=== PATIENT | male | born 1995 | race Caucasian/White ===

== ENCOUNTER 2022-09-21 12:48 | Inpatient (IN) ==
[2022-09-21] MEDS ORDERED: SODIUM CHLORIDE 0.9% 500 ML IV STA (13:13)
[2022-09-21] MEDS: METOPROLOL TARTRATE 1 MG/ML VIAL IV PRN ×4 (13:22→14:20)
--- NOTE | 2022-09-21 13:52 | XRay Report ---
XR chest 1V portable CLINICAL HISTORY: Dysrhythmia TECHNIQUE: Single frontal radiograph of the chest was obtained. Comparison: None available at the time of this dictation. FINDINGS: Exam is limited by underpenetration. The cardiomediastinal silhouette is normal. Prominence and cepha lization of the vasculature is seen. No evidence of pleural effusion or pneumothorax. IMPRESSION: Mild pulmonary edema. ACT 112: Negative or not required by law. Electronically signed by: Frederic Avelar M.D. 09/21/2022 1:50 PM
--- NOTE | 2022-09-21 14:47 | Emergency Department Note ---
History of Present Illness General Chief complaint: Cardiac Assessment Stated complaint: new onset a-fib Time Seen by Provider: 09/21/22 13:01 History of Present Illness 26-year-old male presents to the ED with a chief complaint of atrial fibrillation. The patient states that he was scheduled to have an EGD today. He went to the appointment and was found to have a high heart rate. An EKG was performed and they were concerned about rapid A. fib. He did not get the EGD. He was sent to the ED for evaluation. He states that he feels fine. He does not feel any thing unusual. He does report some shortness of breath if he exerts himself a far distance but typical exertion for him does not seem to be difficult or strenuous. He denies any chest pains or shortness of breath. No palpitations. No additional complaints. He states that he has only had 1 previous EKG in his lifetime about 4 years ago. He was supposed to have the EGD today for a planned gastric bypass surgery. Home Medications Medication Instructions Recorded Confirmed Type bupropion HCl 150 mg 24 hr tablet, 150 mg PO BID 09/18/22 09/21/22 History extended release (Wellbutrin XL) ergocalciferol (vitamin D2) 1,250 1,250 mcg PO Q7D 09/18/22 09/21/22 History mcg (50,000 unit) capsule (Vitamin D2) furosemide 40 mg tablet 40 mg PO HS 09/18/22 09/21/22 History multivitamin 1 tab PO HS 09/18/22 09/21/22 History vitamin A 10,000 unit capsule 10,000 unit PO HS 09/18/22 09/21/22 History Allergies Allergy/AdvReac Type Severity Reaction Status Date / Time No Known Drug Allergies Allergy Verified 09/21/22 11:18 Past Med/Surg History Medical History Depression wellbutrin-also being taken as a craving miladys Hx of edema left leg Hx of migraines once every 4 months Osteoarthritis left knee and lower back Sleep apnea cpap Vitamin A deficiency Vitamin D deficiency Surgical History History of surgical removal of lesion brendon removed from neck Social History (Reviewed 09/21/22 @ 14:39 by SHLOMO Barth Smoking Status: Never smoker Second Hand Exposure: Yes (when staying w/friend-he smokes); Hx Alcohol Use: Yes Hx Substance Use: No Preferred Language: Turkmen Communication Ability: Effective Dado Operator Required: No Beliefs That Will Affect Care: None Current Living Situation: Family Current Living Situation Comment: lives w/aunt and uncle Feels Safe at Home: Yes Assistive Devices: CPAP and Glasses Review of Systems A total of 10 systems reviewed and were otherwise negative Physical Exam Vital Signs Vital Signs - 24 hr 09/21/22 12:54 09/21/22 13:22 09/21/22 13:50 Temperature 36.6 C Temperature Source Temporal Artery Scan Pulse Rate 135 H 156 H 134 H Pulse Rate [Apical] Pulse Rhythm Irregular Respiratory Rate 20 Respiratory Effort / Characteristics Non-Labored Respiratory Depth Normal Blood Pressure 158/97 H 134/98 132/103 H Blood Pressure [Left Arm] Blood Pressure Mean 117 Blood Pressure Mean [Left Arm] Blood Pressure Position Sitting Pulse Oximetry 100 Oxygen Delivery Method Room Air Sepsis Recent Fever Within 48 Hours No Sepsis New/Unexplained Change in Mental Status N/A Sepsis Action Taken by Nursing No Action Required 09/21/22 14:09 09/21/22 13:13 09/21/22 13:09 Temperature Temperature Source Pulse Rate 143 H Pulse Rate [Apical] 128 H Pulse Rhythm Respiratory Rate 20 Respiratory Effort / Characteristics Respiratory Depth Blood Pressure 128/96 Blood Pressure [Left Arm] 134/98 Blood Pressure Mean Blood Pressure Mean [Left Arm] 110 Blood Pressure Position Pulse Oximetry 98 100 Oxygen Delivery Method Room Air Room Air Sepsis Recent Fever Within 48 Hours Sepsis New/Unexplained Change in Mental Status Sepsis Action Taken by Nursing CONSTITUTIONAL/VITAL SIGNS: Reviewed / noted above. GENERAL: Non-toxic in appearance. Morbidly obese. INTEGUMENTARY: Warm, dry, and [place]. HEAD: Normocephalic. EYES: without scleral icterus or trauma. ENT/OROPHARYNX: clear and moist. LYMPHADENOPATHY/NECK: Is supple without lymphadenopathy or meningismus. RESPIRATORY: Clear to auscultation bilaterally. No increased work of breathing. CARDIOVASCULAR: Rapid rate, irregular rhythm. GI/ABDOMEN: Soft and nontender. No organomegaly or pulsatile mass. EXTREMITIES: Warm and well perfused. NEUROLOGICAL: Intact without focal deficits. PSYCHIATRIC: normal affect. MUSCULOSKELETAL: Normally developed with good muscle tone. TRIAGE NURSING DOCUMENTATION REVIEWED. Course Administered Medications Metoprolol Tartrate (Metoprolol Tartrate 1 Mg/Ml Vial) 5 mg IV Q5M PRN PRN Reason: Tachycardia Stop: 10/21/22 13:12 Last Admin: 09/21/22 14:09 Dose: 5 mg Documented By: Admin: 09/21/22 13:50 Dose: 5 mg Documented By: Admin: 09/21/22 13:22 Dose: 5 mg Documented By: QGV Discontinued Medications Diltiazem HCl (Diltiazem Hcl 5 Mg/Ml 5 Ml Vial) 20 mg IV NOW STA Stop: 09/21/22 14:49 Last Admin: 09/21/22 15:05 Dose: 20 mg Documented By: QGV Co-signed By: KRISTOPHER Sodium Chloride (Nss) 500 mls @ 999 mls/hr IV .Q31M STA Stop: 09/21/22 13:43 Last Infusion: 09/21/22 14:07 Dose: 0 mls/hr Documented By: Admin: 09/21/22 13:31 Dose: 999 mls/hr Documented By: QGV Critical Care Time Critical Care Time: Yes Total Critical Care Time: 30 I have personally spent 30 minutes of critical care time in the direct m anagement of this patient. This includes bedside care, interpretation of diagnostic studies, and testing, discussion with consultants, patient, and family members, and other required patient management activities. This 30 minutes is in excess of all separately billable procedures. Medical Decision Making Differential Diagnosis The differential that was considered includes acute myocardial infarction, acute coronary syndrome, myocarditis, pericarditis, pericardial effusions /tamponade, esophageal perforation, thoracic aortic dissection, pulmonary embolism, pneumonia, pneumothorax, pancreatitis, shingles, acute cholecystitis, perforated abdominal viscus. Medical Records Attestation: I reviewed the patient's medical records. Home Medications Current Medication List: was personally reviewed by me Laboratory Data Attestation: I reviewed the patient's lab results. Result diagrams: 09/21/22 14:22 09/21/22 14:22 Lab Results 09/21/22 09/21/22 09/21/22 Range/Units 13:28 14:22 14:22 WBC 8.49 (4.8-10.8) K/ul RBC 4.96 (4.63-6.08) M/uL Hgb 14.8 (14.0-18.0) g/dl Hct 45.3 (40.1-51.0) % MCV 91.3 (80.0-100.0) fL MCH 29.8 (25.0-34.0) pg MCHC 32.7 (32.0-36.0) g/dL RDW Std Deviation 47.0 H (36.4-46.3) fL RDW Coeff of Casa 14.0 (11.5-14.5) % Plt Count 189 (130-400) K/uL MPV 13.7 H (9.4-12.4) fL Immature Gran % (Auto) 0.8 % Neut % (Auto) 70.9 % Lymph % (Auto) 21.0 % [place] % (Auto) 4.9 % Eos % (Auto) 1.8 % Baso % (Auto) 0.6 % Neut # (Auto) 6.02 (1.4-6.5) K/uL Lymph # (Auto) 1.78 (1.2-3.4) K/uL [place] # (Auto) 0.42 (0.24-0.82) K/uL Eos # (Auto) 0.15 (0-0.50) K/uL Baso # (Auto) 0.05 (0-0.2) K/uL Immature Gran # (Auto) 0.07 H (0.00-0.02) K/uL PT 11.5 (9.0-12.0) Seconds INR 1.1 (0.9-1.1) APTT 26.5 (21.0-31.0) Seconds PTT Ratio 1.0 D-Dimer 490 (0-500) ug/L FEU Sodium (136-145) mmol/L Potassium (3.5-5.1) mmol/L Chloride (98-107) mmol/L Carbon Dioxide (21-32) mmol/L Anion Gap (3-11) BUN (6-23) mg/dl Creatinine (0.6-1.4) mg/dl Est Cr Clr Drug Dosing Est GFR ( Amer) ml/min Est GFR (Non-Af Amer) ml/min BUN/Creatinine Ratio (10-20) Glucose (70-99(Fasting)) mg/dl Calcium (8.5-10.1) mg/dl Magnesium (1.7-2.4) mg/dl Total Bilirubin (0.2-1.0) mg/dl AST (13-39) U/L ALT (7-52) U/L Alkaline Phosphatase (34-104) U/L Troponin I High Sens (0-20) pg/ml Total Protein (6.0-8.3) gm/dl Albumin (3.4-5.0) gm/dl Globulin (2.5-4.0) gm/dl Albumin/Globulin Ratio (0.9-2) TSH (0.300-4.500) uIu/ml SARS-CoV-2, RNA, NAAT NEGATIVE (NEGATIVE) 09/21/22 09/21/22 Range/Units 14:22 14:22 WBC (4.8-10.8) K/ul RBC (4.63-6.08) M/uL Hgb (14.0-18.0) g/dl Hct (40.1-51.0) % MCV (80.0-100.0) fL MCH (25.0-34.0) pg MCHC (32.0-36.0) g/dL RDW Std Deviation (36.4-46.3) fL RDW Coeff of Casa (11.5-14.5) % Plt Count (130-400) K/uL MPV (9.4-12.4) fL Immature Gran % (Auto) % Neut % (Auto) % Lymph % (Auto) % [place] % (Auto) % Eos % (Auto) % Baso % (Auto) % Neut # (Auto) (1.4-6.5) K/uL Lymph # (Auto) (1.2-3.4) K/uL [place] # (Auto) (0.24-0.82) K/uL Eos # (Auto) (0-0.50) K/uL Baso # (Auto) (0-0.2) K/uL Immature Gran # (Auto) (0.00-0.02) K/uL PT (9.0-12.0) Seconds INR (0.9-1.1) APTT (21.0-31.0) Seconds PTT Ratio D-Dimer (0-500) ug/L FEU Sodium 139 (136-145) mmol/L Potassium 3.7 (3.5-5.1) mmol/L Chloride 107 (98-107) mmol/L Carbon Dioxide 24 (21-32) mmol/L Anion Gap 8 (3-11) BUN 12 (6-23) mg/dl Creatinine 0.72 (0.6-1.4) mg/dl Est Cr Clr Drug Dosing Not Reportable Est GFR ( Amer) 148.2 ml/min Est GFR (Non-Af Amer) 127.8 ml/min BUN/Creatinine Ratio 16.7 (10-20) Glucose 82 (70-99(Fasting)) mg/dl Calcium 9.0 (8.5-10.1) mg/dl Magnesium 2.0 (1.7-2.4) mg/dl Total Bilirubin 0.7 (0.2-1.0) mg/dl AST 41 H (13-39) U/L ALT 57 H (7-52) U/L Alkaline Phosphatase 65 (34-104) U/L Troponin I High Sens 7.9 (0-20) pg/ml Total Protein 7.2 (6.0-8.3) gm/dl Albumin 4.1 (3.4-5.0) gm/dl Globulin 3.1 (2.5-4.0) gm/dl Albumin/Globulin Ratio 1.3 (0.9-2) TSH 3.158 (0.300-4.500) uIu/ml SARS-CoV-2, RNA, NAAT (NEGATIVE) Imaging Data Radiologist's Impression: Chest X-Ray 09/21/22 13:13 XR chest 1V portable CLINICAL HISTORY: Dysrhythmia TECHNIQUE: Single frontal radiograph of the chest was obtained. Comparison: None available at the time of this dictation. FINDINGS: Exam is limited by underpenetration. The cardiomediastinal silhouette is normal. Prominence and cephalization of the vasculature is seen. No evidence of pleural effusion or pneumothorax. IMPRESSION: Mild pulmonary edema. ACT 112: Negative or not required by law. Electronically signed by: Frederic Avelar M.D. 09/21/2022 1:50 PM ECG Data Attestation: I personally reviewed and interpreted this ECG as follows: Additional Comments: Twelve-lead EKG: Per my interpretation shows atrial fibrillation at a rate of 130. No ST elevation. No PVCs. Normal QTC. MDM Narrative 26-year-old male presents with atrial fibrillation. He has not had this in the past. Uncertain how long its been going on. He has no significant symptoms. Vital signs reveal heart rate of 143. Blood pressure and pulse ox were normal. Afebrile. Twelve-lead EKG showed A. fib at a rate of 130. A chest x-ray reveals mild pulmonary edema. CBC is unremarkable. D-dimer was negative. TSH was normal. Chemistry panel was unremarkable. Troponin was negative. COVID test was negative. The patient was initially given 15 mg IV Lopressor with improvement of his heart rate from the 140-160 range down to about 120-140. IV Cardizem 20 mg was given. His heart rate then improved to the 80-120 range. He did have a transient hypotension with this with a blood pressure down to 78 systolic. His blood pressure did improve with a little bit of time to the 115 systolic range. He was started on IV heparin. The IV Cardizem drip was held for now. He will be seen by the hospitalist. Impression & Plan Atrial fibrillation with RVR Discharge Plan Visit Data Chief Complaint: Cardiac Assessment Stated Complaint: new onset a-fib ED Provider: Osman Mahoney Discharge Problem: Atrial fibrillation with RVR Patient Disposition: Being Evaluated by Hospitalist Forms Stand Alone Forms: My [facility] Prescriptions Prescriptions: No Action multivitamin Tablet 1 tab PO HS furosemide 40 mg Tablet 40 mg PO HS vitamin A 10,000 unit Capsule 10,000 unit PO HS Rx Instructions: once daily for 4 weeks ergocalciferol (vitamin D2) [Vitamin D2] 1,250 mcg (50,000 unit) Capsule 1,250 mcg PO Q7D bupropion HCl [Wellbutrin XL] 150 mg Tablet Extended Release 24 Hr 150 mg PO BID Referrals Referrals: Marysol Lorenzo DO [Primary Care Provider] -
[2022-09-21] MEDS ORDERED: dilTIAZem HCl 5 MG/ML 5 ML VIAL IV STA (14:48)
[2022-09-21 14:50] LABS: Basophils # (auto) 0.05 K/uL (0-0.2); Basophils % (auto) 0.6 %; Eosinophils # (auto) 0.15 K/uL (0-0.50); Eosinophils % (auto) 1.8 %; Hematocrit (blood only) 45.3 % (40.1-51.0); Hemoglobin 14.8 g/dl (14.0-18.0); Immature Granulocytes # (auto) 0.07 K/uL (0.00-0.02); Immature Granulocytes % (auto) 0.8 %; Lymphocytes # (auto) 1.78 K/uL (1.2-3.4); Mean Corpuscular Hemoglobin 29.8 pg (25.0-34.0); Mean Corpuscular Hgb Conc 32.7 g/dL (32.0-36.0); Mean Corpuscular Volume 91.3 fL (80.0-100.0); Mean Platelet Volume 13.7 fL (9.4-12.4); Monocytes # (auto) 0.42 K/uL (0.24-0.82); Monocytes % (auto) 4.9 %; Neutrophils # (auto) 6.02 K/uL (1.4-6.5); Neutrophils % (auto) 70.9 %; Platelet Count 189 K/uL (130-400); Red Blood Count 4.96 M/uL (4.63-6.08); White Blood Count 8.49 K/ul (4.8-10.8)
[2022-09-21 14:51] LABS: D Dimer 490 ug/L FEU (0-500); INR 1.1 (0.9-1.1); Partial Thromboplastin Time 26.5 Seconds (21.0-31.0); Prothrombin Time 11.5 Seconds (9.0-12.0)
[2022-09-21 15:05] LABS: Alanine Aminotransferase 57 U/L (7-52); Albumin Globulin Ratio 1.3 (0.9-2); Albumin Level 4.1 gm/dl (3.4-5.0); Alkaline Phosphatase 65 U/L (34-104); Anion Gap 8 (3-11); Aspartate Aminotransferase 41 U/L (13-39); BUN Creatinine Ratio 16.7 (10-20); Bilirubin,Total 0.7 mg/dl (0.2-1.0); Blood Urea Nitrogen 12 mg/dl (6-23); Carbon Dioxide 24 mmol/L (21-32); Chloride 107 mmol/L (98-107); Est GFR (African American) 148.2 ml/min; Est GFR (Non-African American) 127.8 ml/min; Globulin 3.1 gm/dl (2.5-4.0); Glucose 82 mg/dl (70-99(Fasting)); Potassium 3.7 mmol/L (3.5-5.1); Sodium 139 mmol/L (136-145); Total Protein 7.2 gm/dl (6.0-8.3)
[2022-09-21] MEDS ORDERED: STAT IV Infusion **Titration per Protocol STA (15:08)
[2022-09-21 15:09] LABS: Troponin I High Sensitivity 7.9 pg/ml (0-20)
[2022-09-21] MEDS ORDERED: dilTIAZem HCL 125 MG in DEXTROSE 5% 100 ML IV SCH (15:15)
[2022-09-21] MEDS ORDERED: Heparin IV Adult Wt-Based Standard WITH Bolus Protocol IV STA (15:20)
[2022-09-21] MEDS ORDERED: Heparin IV Adult Wt-Based Standard WITH Bolus Protocol IV SCH (15:30)
[2022-09-21] MEDS ORDERED: HEPARIN SOD (PORCINE) 1000 UNIT/ML IV ONE ×2 (15:36)
[2022-09-21] MEDS: MAGNESIUM SULFATE / D5W 1 GM/100 ML BAG IV SCH ×2 (15:54→17:15)
--- NOTE | 2022-09-21 16:02 | History & Physical Report ---
Date of Service September 21, 2022 Assessment & Plan (1) Atrial fibrillation with RVR: Plan: Patient will be continued on p.o. diltiazem he will be given a gram of magnesium in the ER will be given patient be on conveyor monitor we will check a high- sensitivity troponin in the morning as a follow-up from this evening's of cardiology consultation and echocardiogram His Yonathan vas score is low he will be on heparin likely in the hopes of possible conversion in the future his obesity may have some influence in choice of agents for discharge. lyme titre is also sent (2) Depression: Plan: Patient continues Wellbutrin 150 twice daily (3) Hx of edema: Plan: Patient states his lower extreme edema is about stable for him he takes Lasix 40 mg at bedtime this will be held this evening due to some lower blood pressure from his diltiazem (4) Morbid obesity: Plan: Patient's BMI of 81.6 directly impacts majority of his health care (5) Sleep apnea: Plan: Patient be maintained on his CPAP for sleep apnea while here in the hospital typically wearing 11 cm of water at home Plan DVT prevention is heparin. Patient had a negative D-dimer on presentation. History of Present Illness Primary Care Provider: Marysol Lorenzo DO 26-year-old male who presents as referral from endoscopy. Patient was in endoscopy as part of a work-up for gastric bypass surgery as a patient weighs 460 pounds with a BMI of 81.6. At endoscopy was found to have tachycardia which was later determined to be atrial fibrillation RVR. Emergency department had given the patient metoprolol 5 mg IV x3 without improvement of his rate he had a bolus of diltiazem (20mg)with some minor decrease in blood pressure and is currently having an infusion of magnesium although his magnesium level was 2 on presentation. During my evaluation the patient did have short runs of sinus rhythm and it is hopeful that the diltiazem may convert him. The patient will be continued on po diltiazem. He was also given a liter of saline. Additional work-up includes a normal D-dimer and a normal TSH and normal potassium and a high-sensitivity troponin which is also normal Patient states he typically does not drink any caffeine at all, does not take any [id number] supplements or appetite suppressants and typically is only on his prescription meds. bupropion does have some slight correlation with tachycardia but no defined correlation with atrial fibrillation he has been on bupropion for some period of time as an appetite suppressant and antidepressant. His dose has not changed Allergies Allergy/AdvReac Type Severity Reaction Status Date / Time No Known Drug Allergies Allergy Verified 09/21/22 11:18 Home Medications Medication Instructions Recorded Confirmed Type bupropion HCl 150 mg 24 hr tablet, 150 mg PO BID 09/18/22 09/21/22 History extended release (Wellbutrin XL) ergocalciferol (vitamin D2) 1,250 1,250 mcg PO Q7D 09/18/22 09/21/22 History mcg (50,000 unit) capsule (Vitamin D2) furosemide 40 mg tablet 40 mg PO HS 09/18/22 09/21/22 History multivitamin 1 tab PO HS 09/18/22 09/21/22 History vitamin A 10,000 unit capsule 10,000 unit PO HS 09/18/22 09/21/22 History Past Med/Surg History Medical History (Updated 09/21/22 @ 16:00 by Catarino Sparks MD) Depression wellbutrin-also being taken as a craving miladys Hx of edema left leg Hx of migraines once every 4 months Osteoarthritis left knee and lower back Sleep apnea cpap Vitamin A deficiency Vitamin D deficiency Surgical History History of surgical removal of lesion brendon removed from neck Family History (Updated 09/21/22 @ 16:10 by Catarino Sparks MD) Mother Hypertension mother has pacemaker and heart valve replacement Social History Smoking Status: Never smoker Second Hand Exposure: Yes (when staying w/friend-he smokes); Hx Alcohol Use: Yes Hx Substance Use: No Preferred Language: Mongolian Communication Ability: Effective Folder Inspector Required: No Beliefs That Will Affect Care: None Current Living Situation: Family Current Living Situation Comment: lives w/aunt and uncle Feels Safe at Home: Yes Assistive Devices: CPAP and Glasses Review of Systems Review of Systems: Mild distress and fatigue no headache, no visual changes no speech or swallowing issues no chest pain, pressure or palpitations no shortness of breath, cough or wheezes no abdominal pain, nausea or vomiting, diarrhea or constipation no dysuria, hematuria or frequency no focal joint pain or patient's chronic lower extremity swelling left leg greater than right no back pain, CVA tenderness or radicular pain no bruising, bleeding or rashes no focal signs of weakness or numbness or altered sensation no complaints of anxiety or depression.. Physical Exam Physical Exam: The patient appeared well nourished and normally developed. Vital signs as documented. Head exam is normocephalic atraumatic Neck is without JVD, thyromegaly, or carotid bruits. Lungs are clear to auscultation, no focal loss of breath sounds Cardiac exam, Rhythm is regular.. No murmurs, rubs or gallops. Abdominal exam reveals normal bowel sounds, soft non tender, no masses Extremities are with bilateral lymphedema with more prominent lymphedema and some erythema on the left leg Neurologic exam is alert and oriented, no focal loss of strength or sensation Skin is without bruises or rashes Psychologically is without concerns for anxiety or depression.. Results & Data Results & Data ([facility]) Vital Signs (Past 12 Hours) Vital Signs Temp Pulse Pulse Resp BP BP Pulse Ox 09/21/22 13:09 128 H 20 134/98 100 09/21/22 13:13 98 09/21/22 14:09 143 H 128/96 09/21/22 13:50 134 H 132/103 H 09/21/22 13:22 156 H 134/98 09/21/22 12:54 97.9 F 135 H 20 158/97 H 100 O2 Del Method 09/21/22 13:09 Room Air 09/21/22 13:13 Room Air 09/21/22 14:09 09/21/22 13:50 09/21/22 13:22 09/21/22 12:54 Room Air ECG Additional Comments: EKG shows A. fib rapid ventricular response Code Status & VTE Plan VTE Prophylaxis Plan VTE Prophylaxis will be ordered: Yes PG Care Time/CCT Total # of Minutes Spent Total Time Spent with Patient: Total time spent is greater than 50% in coordination of care (as documented) at patient's floor/unit and/or counseling patient: Coding Level of Care Code 78756 Initial Inpt Care Lvl 2 Diagnoses Atrial fibrillation with RVR I48.91 Depression F32.A Hx of edema Z87.898 Morbid obesity E66.01 Sleep apnea G47.30
[2022-09-21] MEDS: HEPARIN SODIUM/DEXTROSE 25,000 UNITS/500 ML BAG IV SCH (17:08)
[2022-09-21] MEDS ORDERED: ACETAMINOPHEN 325 MG TAB PO PRN (18:13)
[2022-09-21] MEDS ORDERED: ONDANSETRON INJ 2 MG/ML 2 ML VIAL IV PRN (18:13)
[2022-09-21] MEDS ORDERED: HEPARIN SODIUM/DEXTROSE 25,000 UNITS/500 ML BAG IV SCH (18:13)
[2022-09-21] MEDS ORDERED: Heparin IV Adult Wt-Based Standard *NO* Bolus Protocol IV ONE (18:13)
[2022-09-21] MEDS ORDERED: METOPROLOL TARTRATE 1 MG/ML VIAL IV PRN (18:13)
[2022-09-21] MEDS ORDERED: MAGNESIUM SULFATE / D5W 1 GM/100 ML BAG IV STA (18:27)
[2022-09-21] MEDS ORDERED: dilTIAZem HCL 30 MG TAB PO ONE (18:30)
[2022-09-21] MEDS ORDERED: ERGOCALCIFEROL 50,000 UNITS 1250 MCG CAP PO SCH (19:00)
[2022-09-21 19:03] LABS: Lyme Ab IgG w/WB Rflx Negative (Negative); Lyme Ab IgM w/WB Rflx Negative (Negative)
--- NOTE | 2022-09-21 20:10 | Electrocardiogram Report ---
Test Reason : Blood Pressure : / mmHG Vent. Rate : 129 BPM Atrial Rate : 092 BPM P-R Int : 000 ms QRS Dur : 088 ms QT Int : 306 ms P-R-T Axes : 000 042 030 degrees QTc Int : 448 ms Atrial fibrillation with rapid ventricular response Abnormal ECG No previous ECGs available Confirmed by Otoniel Gomez ([id number]) on 09/21/2022 8:10:00 PM Referred By: Niyah Thornton Confirmed By:Pete Gomez
--- NOTE | 2022-09-21 20:11 | Electrocardiogram Report ---
Test Reason : Blood Pressure : / mmHG Vent. Rate : 130 BPM Atrial Rate : 111 BPM P-R Int : 000 ms QRS Dur : 092 ms QT Int : 310 ms P-R-T Axes : 000 046 038 degrees QTc Int : 456 ms Atrial fibrillation with rapid ventricular response with premature ventricular or aberrantly conducte d complexes Abnormal ECG When compared with ECG of 21-SEP-2022 12:31, (unconfirmed) No significant change was found Confirmed by Otoniel Gomez ([id number]) on 09/21/2022 8:11:05 PM Referred By: Niyah Thornton Confirmed By:Pete Gomez
[2022-09-21] MEDS: buPROPion XL 150 MG TABCR PO SCH (20:14)
[2022-09-21] MEDS: dilTIAZem HCL 30 MG TAB PO SCH (20:14)
[2022-09-21] MEDS ORDERED: MULTIVITAMIN TAB PO SCH (21:00)
[2022-09-21 23:39] LABS: Partial Thromboplastin Ratio 1.6
[2022-09-22] MEDS: HEPARIN SODIUM/DEXTROSE 25,000 UNITS/500 ML BAG IV SCH (04:57)
[2022-09-22 08:15] LABS: Partial Thromboplastin Ratio 1.6
[2022-09-22] MEDS: buPROPion XL 150 MG TABCR PO SCH (08:32)
[2022-09-22] MEDS: dilTIAZem HCL 30 MG TAB PO SCH (08:33)
[2022-09-22 08:49] LABS: BUN Creatinine Ratio 12.3 (10-20); Calcium 8.5 mg/dl (8.5-10.1); Creatinine Clr Calc Pharmacy 231.6 ml/min; Est GFR (African American) 147.3 ml/min; Est GFR (Non-African American) 127.1 ml/min; Magnesium 2.1 mg/dl (1.7-2.4); Potassium 3.6 mmol/L (3.5-5.1)
[2022-09-22] MEDS ORDERED: dilTIAZem HCL 180 MG CAPCR PO SCH (09:45)
[2022-09-22] MEDS ORDERED: APIXABAN 5 MG TABLET PO ONE (09:58)
--- NOTE | 2022-09-22 10:41 | XCELERA ---
[id number]
--- NOTE | 2022-09-22 12:03 | Discharge Summary ---
Date of Service September 22, 2022 Admission HPI Per Admitting Provider 26-year-old male who presents as referral from endoscopy. Patient was in endoscopy as part of a work-up for gastric bypass surgery as a patient weighs 460 pounds with a BMI of 81.6. At endoscopy was found to have tachycardia which was later determined to be atrial fibrillation RVR. Emergency department had given the patient metoprolol 5 mg IV x3 without improvement of his rate he had a bolus of diltiazem (20mg )with some minor decrease in blood pressure and is currently having an infusion of magnesium although his magnesium level was 2 on presentation. During my evaluation the patient did have short runs of sinus rhythm and it is hopeful that the diltiazem may convert him. The patient will be continued on po diltiazem. He was also given a liter of saline. Additional work-up includes a normal D-dimer and a normal TSH and normal potassium and a high-sensitivity troponin which is also normal Patient states he typically does not drink any caffeine at all, does not take any msoa-nwz-puzyukg supplements or appetite suppressants and typically is only on his prescription meds. bupropion does have some slight correlation with tachycardia but no defined correlation with atrial fibrillation he has been on bupropion for some period of time as an appetite suppressant and antidepressant. His dose has not changed Principal Diagnosis New onset atrial fibrillation with rapid ventricular rate, hypomagnesemia Discharge Exam General-alert and oriented x3, no fevers, no chills. Morbidly obese HEENT-head atraumatic and normocephalic, pupils equal and reactive to light, extraocular muscles intact Neck-no lymphadenopathy or thyromegaly, trachea midline Chest-clear to auscultation percussion. No rales wheezing or rhonchi Cardiac-regular rate and rhythm, normal S1 and S2, no murmurs Abdomen-normal bowel sounds, nontender, no hepatosplenomegaly Extremities-no cyanosis, clubbing, or edema Neuro-cranial nerves II through XII intact, motor and sensory function within normal limits, strength symmetrical , no focal deficits Psych-normal affect, normal mood Discharge Data Allergies Allergy/AdvReac Type Severity Reaction Status Date / Time No Known Drug Allergies Allergy Verified 09/21/22 11:18 Consultations 09/21/22 15:26 ED Decision to Admit Stat 09/21/22 18:13 Consult Cardiology Routine Hospital Course (1) Atrial fibrillation with RVR: The patient converted to normal sinus rhythm. He is currently asymptomatic. Heparin drip has been discontinued and he is now on Eliquis. Diltiazem short acting switched to long-acting CD1 180 mg daily. Case discussed with cardiology. Home today. lyme titre is also sent (2) Depression: Patient continues Wellbutrin 150 twice daily (3) Hx of edema: Patient states his lower extreme edema is stable for him . Continue Lasix 40 mg at bedtime at discharge. (4) Morbid obesity: Patient's BMI of 81.6 directly impacts majority of his health care (5) Sleep apnea: Patient be maintained on his CPAP for sleep apnea while hospitalized Plan DVT prevention : Heparin drip switched to Eliquis Total Time Total Time Spent Total Time Spent (In Minutes): 40 minutes Discharge Plan Discharge Items Patient Disposition: Home - Self-Care Discharge Diagnosis: New onset atrial fibrillation with rapid ventricular rate, hypomagnesemia Activity: Resume your previous activity Non-emergency contact: Primary Care Provider and Gun Sealing Machine Operator Call non-emergency contact if: you have any medication questions and your symptoms worsen Follow-up/Referrals: Marysol Lorenzo DO [Primary Care Provider] - Diet: Heart Healthy Addtl Attending Provider Instructions: Take diltiazem CD1 180 mg daily and Eliquis 5 mg twice a day. Follow-up with cardiology as directed Pending Studies at Discharge: No Stand-Alone Forms: My [facility] [employer], Smoking Cessation Medications and DC Order Prescriptions: New Eliquis 5 mg Tablet 5 mg PO BID Qty: 30 0RF diltiazem HCl 180 mg Capsule,Extended Release 24hr 180 mg PO QAM Qty: 30 0RF Continued multivitamin Tablet 1 tab PO HS furosemide 40 mg Tablet 40 mg PO HS vitamin A 10,000 unit Capsule 10,000 unit PO HS Rx Instructions: once daily for 4 weeks ergocalciferol (vitamin D2) [Vitamin D2] 1,250 mcg (50,000 unit) Capsule 1,250 mcg PO Q7D bupropion HCl [Wellbutrin XL] 150 mg Tablet Extended Release 24 Hr 150 mg PO BID Discharge Orders: Discharge Order (Routine); Ordered 09/22/22 Ordered By: Ramirez Ty Admission Data Admit Date/Time: 09/21/22 15:51 Attending Provider: Ramirez Ty Admit Provider: Catarino Sparks Primary Care Provider: Marysol Lorenzo Other Providers: Catarino Sparks ; Otoniel Gomez Coding Level of Care Code D/C DAY MANAGEMENT >30 MINS Diagnoses Atrial fibrillation with RVR I48.91 Depression F32.A Hx of edema Z87.898 Morbid obesity E66.01 Sleep apnea G47.30
--- NOTE | 2022-09-22 12:33 | Discharge Summary ---
Date of Service September 22, 2022 Admission HPI Per Admitting Provider 26-year-old male who presents as referral from endoscopy. Patient was in endoscopy as part of a work-up for gastric bypass surgery as a patient weighs 460 pounds with a BMI of 81.6. At endoscopy was found to have tachycardia which was later determined to be atrial fibrillation RVR. Emergency department had given the patient metoprolol 5 mg IV x3 without improvement of his rate he had a bolus of diltiazem (20mg )with some minor decrease in blood pressure and is currently having an infusion of magnesium although his magnesium level was 2 on presentation. During my evaluation the patient did have short runs of sinus rhythm and it is hopeful that the diltiazem may convert him. The patient will be continued on po diltiazem. He was also given a liter of saline. Additional work-up includes a normal D-dimer and a normal TSH and normal potassium and a high-sensitivity troponin which is also normal Patient states he typically does not drink any caffeine at all, does not take any ygwf-fib-rrxaido supplements or appetite suppressants and typically is only on his prescription meds. bupropion does have some slight correlation with tachycardia but no defined correlation with atrial fibrillation he has been on bupropion for some period of time as an appetite suppressant and antidepressant. His dose has not changed Principal Diagnosis new onset atrial fib with RVR, hypomagnesemia Discharge Exam General-alert and oriented x3, no fevers, no chills. Morbidly obese HEENT-head atraumatic and normocephalic, pupils equal and reactive to light, extraocular muscles intact Neck-no lymphadenopathy or thyromegaly, trachea midline Chest-clear to auscultation percussion. No rales wheezing or rhonchi Cardiac-regular rate and rhythm, normal S1 and S2, no murmurs Abdomen-normal bowel sounds, nontender, no hepatosplenomegaly Extremities-no cyanosis, clubbing, or edema Neuro-cranial nerves II through XII intact, motor and sensory function within normal limits, strength symmetrical , no focal deficits Psych-normal affect, normal mood Discharge Data Allergies Allergy/AdvReac Type Severity Reaction Status Date / Time No Known Drug Allergies Allergy Verified 09/21/22 11:18 Consultations 09/21/22 15:26 ED Decision to Admit Stat 09/21/22 18:13 Consult Cardiology Routine Hospital Course (1) Atrial fibrillation with RVR: The patient converted back to normal sinus rhythm. Case discussed with cardiology. Short acting Cardizem since has been switched to long-acting Cardizem CD. Heparin drip has been discontinued. He will not require systemic anticoagulation at discharge. He will follow-up with cardiology as an outpatient. (2) Depression: Stable with current medication (3) Hx of edema: Continue Lasix as before (4) Morbid obesity: BMI is much greater than 40. Weight loss recommended (5) Sleep apnea: Continue use of CPAP at bedtime Plan Discharge home today, September 22. Follow-up with Dr. Gomez as an outpatient Total Time Total Time Spent Total Time Spent (In Minutes): 40 minutes Discharge Plan Discharge Items Patient Disposition: Home - Self-Care Discharge Diagnosis: New onset atrial fibrillation with rapid ventricular rate, hypomagnesemia Activity: Resume your previous activity Non-emergency contact: Primary Care Provider and Quality Tester Call non-emergency contact if: you have any medication questions and your symptoms worsen Follow-up/Referrals: Marysol Lorenzo, DO [Primary Care Provider] - (Please contat this provider on Saturday morning to schedule your follow up) Diet: Heart Healthy Addtl Attending Provider Instructions: Take diltiazem CD1 180 mg daily. Follow-up with cardiology as directed Pending Studies at Discharge: No Stand-Alone Forms: My [facility] [employer], Smoking Cessation Medications and DC Order Prescriptions: New diltiazem HCl 180 mg Capsule,Extended Release 24hr 180 mg PO QAM Qty: 30 0RF Continued multivitamin Tablet 1 tab PO HS furosemide 40 mg Tablet 40 mg PO HS vitamin A 10,000 unit Capsule 10,000 unit PO HS Rx Instructions: once daily for 4 weeks ergocalciferol (vitamin D2) [Vitamin D2] 1,250 mcg (50,000 unit) Capsule 1,250 mcg PO Q7D bupropion HCl [Wellbutrin XL] 150 mg Tablet Extended Release 24 Hr 150 mg PO BID Discharge Orders: Discharge Order (Routine); Ordered 09/22/22 Ordered By: Ramirez Ty Admission Data Admit Date/Time: 09/21/22 15:51 Attending Provider: Ramirez Ty Admit Provider: Catarino Sparks Primary Care Provider: Marysol Lorenzo Other Providers: Catarino Sparks ; Otoniel Gomez. Coding Level of Care Code D/C DAY MANAGEMENT >30 MINS Diagnoses Atrial fibrillation with RVR I48.91 Depression F32.A Hx of edema Z87.898 Morbid obesity E66.01 Sleep apnea G47.30
--- NOTE | 2022-09-22 13:39 | Cardiology Consultation ---
Date of Consultation September 22, 2022 Assessment & Plan (1) Atrial fibrillation with RVR: -uncertain time of onset. -arrhythmia was asymptomatic. -converted to sinus rhythm at 7:30 a.m. this morning. -tolerating diltiazem CD 1 80 mg daily -no need for long-term anticoagulation as his CHADSVasc score is 0. -recommend 30 day event monitor. -follow-up with Dr. Gomez(he is aware). History of Present Illness Attending Physician: Ramirez Ty MD History of Present Illness The patient is a 26-year-old male admitted yesterday with new onset atrial fibrillation. This consultation was ordered to assist in his cardiac management. The patient was in his usual state of health until the day of presentation. He was in the endoscopy suite for an EGD as part of his workup for bariatric surgery. He was noted to be in atrial fibrillation with a rapid ventricular response. The patient was completely asymptomatic at that time. He was sent to the emergency room for further care. On arrival to the emergency room, the patient was noted a rapid ventricular response. He was treated with intravenous metoprolol 5 mg x 3 with little imp rovement in his heart rate. He was then placed on a diltiazem drip with better control of his ventricular response. The patient did convert to sinus rhythm at approximately 7:30 a.m. this morning. The patient has never known of atrial fibrillation previously. As above, he experienced no symptoms with his atrial fibrillation. He has never known of a cardiac event. He has never experienced exertional chest pain or limiting dyspnea. He further denies syncope, presyncope, PND, orthopnea, lower extremity edema, and claudication. Currently, patient is resting comfortably in bed without complaints. We have discussed his plan to include a 30 day event monitor and a follow-up visit with Dr. Gomez. The patient is in agreement. Past medical and surgical history 1. Paroxysmal atrial fibrillation-September 2022 2. Morbid obesity 3. Obstructive sleep apnea 4. Depression 5. Migraine headaches 6. DJD 7. Vitamin-D deficiency 8. Vitamin a deficiency Social history Single, lives with his parents No tobacco Rare alcohol Family history No early coronary artery disease Review of systems A 10 review systems was undertaken and negative except that described above. Allergies Allergy/AdvReac Type Severity Reaction Status Date / Time No Known Drug Allergies Allergy Verified 09/21/22 11:18 Home Medications Medication Instructions Recorded Confirmed Type bupropion HCl 150 mg 24 hr tablet, 150 mg PO BID 09/18/22 09/21/22 History extended release (Wellbutrin XL) ergocalciferol (vitamin D2) 1,250 1,250 mcg PO Q7D 09/18/22 09/21/22 History mcg (50,000 unit) capsule (Vitamin D2) furosemide 40 mg tablet 40 mg PO HS 09/18/22 09/21/22 History multivitamin 1 tab PO HS 09/18/22 09/21/22 History vitamin A 10,000 unit capsule 10,000 unit PO HS 09/18/22 09/21/22 History diltiazem HCl 180 mg 180 mg PO QAM #30 caps 09/22/22 Rx capsule,extended release 24 hr Patient History Medical History (Updated 09/21/22 @ 16:00 by Catarino Sparks MD) Depression wellbutrin-also being taken as a craving miladys Hx of edema left leg Hx of migraines once every 4 months Osteoarthritis left knee and lower back Sleep apnea cpap Vitamin A deficiency Vitamin D deficiency Surgical History History of surgical removal of lesion brendon removed from neck Family History (Updated 09/21/22 @ 16:10 by Catarino Sparks MD) Mother Hypertension mother has pacemaker and heart valve replacement Social History Smoking Status: Never smoker Second Hand Exposure: Yes (when staying w/friend-he smokes); Hx Alcohol Use: No Hx Substance Use: No Preferred Language: Indonesian Communication Ability: Effective Cigar Packing Examiner Required: No Beliefs That Will Affect Care: None Current Living Situation: Alone Current Living Situation Comment: lives w/aunt and uncle Other Information That Helps Us Care for You: No Feels Safe at Home: Yes Safety Concerns: Feels Safe At This Time Assistive Devices: None Physical Exam Physical Exam: In general is obese white male in no acute distress. HEENT exam is negative. Neck is supple with full carotid upstrokes. No carotid bruits. Jugular is pressure is flat at 90. There is no thyromegaly. Cardiovascular exam reveals a regular rhythm with a normal S1 and S2. Heart sounds are distant. No obvious murmurs. Lungs are clear without rales, rhonchi, or wheezes. Abdomen is soft and nontender without bruits. Extremities reveal intact radial artery pulses bilaterally. There is no peripheral edema. Results & Data ([facility]) Vital Signs (Past 12 Hours) Vital Signs Temp Pulse Pulse Resp BP Pulse Ox O2 Del Method 09/22/22 12:37 36.4 C L 83 19 110/73 98 09/22/22 06:17 128 H 09/22/22 08:00 80 09/22/22 08:00 Room Air 09/22/22 10:42 36.4 C L 83 19 110/73 98 Room Air 09/22/22 06:59 36.3 C L 105 H 20 113/77 94 Room Air 09/22/22 02:05 120 H 17 96 09/22/22 03:36 36.5 C 96 H 20 124/84 96 Room Air FiO2 09/22/22 12:37 09/22/22 06:17 09/22/22 08:00 09/22/22 08:00 09/22/22 10:42 09/22/22 06:59 09/22/22 02:05 21 09/22/22 03:36 Laboratory Results CBC notes hemoglobin 14.8, crit 45.3, white count 8.5, and platelet of 189 1000. Electrolytes note a sodium of 138, potassium 3.6, chloride 106, bicarb 27, BUN 9, creatinine 0.73, glucose of 86. Magnesium level is 2.1 within normal TSH of 3.158. High sensitivity troponin 7.9. Diagnostic Findings EKG notes normal sinus rhythm with occasional PACs and a lateral infarct pattern. However, there is likely a limb lead reversal. Echocardiogram notes normal systolic function with ejection fraction 55-60%. No wall motion abnormalities. Technically limited study. Chest x-ray shows no acute disease. PG Care Time/CCT Total # of Minutes Spent Total Time Spent with Patient: Total time spent is greater than 50% in coordination of care (as documented) at patient's floor/unit and/or counseling patient: Coding Level of Care Code 19564 Office/OBS Consult Lvl 4 Diagnoses Atrial fibrillation with RVR I48.91
--- NOTE | 2022-09-22 13:58 | Discharge Summary ---
Date of Service September 22, 2022 Admission HPI Per Admitting Provider 26-year-old male who presents as referral from endoscopy. Patient was in endoscopy as part of a work-up for gastric bypass surgery as a patient weighs 460 pounds with a BMI of 81.6. At endoscopy was found to have tachycardia which was later determined to be atrial fibrillation RVR. Emergency department had given the patient metoprolol 5 mg IV x3 without improvement of his rate he had a bolus of diltiazem (20mg )with some minor decrease in blood pressure and is currently having an infusion of magnesium although his magnesium level was 2 on presentation. During my evaluation the patient did have short runs of sinus rhythm and it is hopeful that the diltiazem may convert him. The patient will be continued on po diltiazem. He was also given a liter of saline. Additional work-up includes a normal D-dimer and a normal TSH and normal potassium and a high-sensitivity troponin which is also normal Patient states he typically does not drink any caffeine at all, does not take any dqtn-spx-pwnoxit supplements or appetite suppressants and typically is only on his prescription meds. bupropion does have some slight correlation with tachycardia but no defined correlation with atrial fibrillation he has been on bupropion for some period of time as an appetite suppressant and antidepressant. His dose has not changed Principal Diagnosis atrial fib with RVR Discharge Data Allergies Allergy/AdvReac Type Severity Reaction Status Date / Time No Known Drug Allergies Allergy Verified 09/21/22 11:18 Consultations 09/21/22 15:26 ED Decision to Admit Stat 09/21/22 18:13 Consult Cardiology Routine Total Time Total Time Spent Total Time Spent (In Minutes): 40 minutes Discharge Plan Discharge Items Patient Disposition: Home - Self-Care Discharge Diagnosis: New onset atrial fibrillation with rapid ventricular rate, hypomagnesemia Activity: Resume your previous activity Non-emergency contact: Primary Care Provider and Choir Director Call non-emergency contact if: you have any medication questions and your symptoms worsen Follow-up/Referrals: Marysol Lorenzo, [Primary Care Provider] - (Please contat this provider on Sat morning to schedule your follow up) Diet: Heart Healthy Addtl Attending Provider Instructions: Take diltiazem CD1 180 mg daily. Follow-up with cardiology as directed Pending Studies at Discharge: No Stand-Alone Forms: Work/School Release Medications and DC Order Prescriptions: New diltiazem HCl 180 mg Capsule,Extended Release 24hr 180 mg PO QAM Qty: 30 0RF Continued multivitamin Tablet 1 tab PO HS furosemide 40 mg Tablet 40 mg PO HS vitamin A 10,000 unit Capsule 10,000 unit PO HS Rx Instructions: once daily for 4 weeks ergocalciferol (vitamin D2) [Vitamin D2] 1,250 mcg (50,000 unit) Capsule 1,250 mcg PO Q7D bupropion HCl [Wellbutrin XL] 150 mg Tablet Extended Release 24 Hr 150 mg PO BID Discharge Orders: Discharge Order (Routine); Ordered 09/22/22 Ordered By: Ramirez Zelaya/Other Patient Handouts: Calcium Channel Blockers Dc, AFib Preventing Stroke, AFib Admission Data Admit Date/Time: 09/21/22 15:51 Attending Provider: Ramirez Ty Admit Provider: Catarino Sparks Primary Care Provider: Marysol Lorenzo Other Providers: Catarino Sparks ; Otoniel Gomez Other Interventions: Discharge Summary Assessment (RN) Last Done: 09/22/22 12:37 Coding Level of Care Code D/C DAY MANAGEMENT >30 MINS
--- NOTE | 2022-09-22 14:44 | Electrocardiogram Report ---
Test Reason : Blood Pressure : / mmHG Vent. Rate : 121 BPM Atrial Rate : 159 BPM P-R Int : 000 ms QRS Dur : 086 ms QT Int : 324 ms P-R-T Axes : 000 050 048 degrees QTc Int : 460 ms Atrial fibrillation with rapid ventricular response Abnormal ECG When compared with ECG of 21-SEP-2022 13:00, No significant change was found Confirmed by Pillo Stahl ([id number]) on 09/22/2022 2:43:39 PM Referred By: Niyah Thornton Confirmed By:Pillo Stahl
[2022-09-22] MEDS ORDERED: APIXABAN 5 MG TABLET PO SCH (21:00)
== END 2022-09-22 14:34 | disposition home or self-care (01) | DRG 309 ==
LOC: ED 12:48 → 2S 15:51 → SUATTDRO 15:51 → 2S 17:36